=== PATIENT | female | born 1945 | race Hispanic/Latino ===

== ENCOUNTER → 2022-01-17 | Day surgery (SDC) | payer MEDICARE ==
[2022-01-15 15:15] LABS: BASOPHILS # (AUTO) 0.1 (0.0-0.1); BASOPHILS % 0.5 % (0.0-1.0); EOSINOPHILS # (AUTO) 0.2 (0.0-0.4); EOSINOPHILS % 2.1 % (0.0-6.0); HEMATOCRIT 43.1 % (34.2-44.1); HEMOGLOBIN 13.8 g/dL (12.0-16.0); LYMPHOCYTES # (AUTO) 2.7 (1.0-3.2); LYMPHOCYTES % 25.3 % (18.0-39.1); MEAN CORPUSCULAR HEMOGLOBIN 30.5 pg (28-32); MEAN CORPUSCULAR VOLUME 95.1 fL (81-99); MONOCYTES # (AUTO) 0.8 (0.2-0.8); NEUTROPHILS % 64.8 % (38.7-80.0); PLATELET COUNT 212 x10e3/uL (140-360); RED BLOOD COUNT 4.53 x10e6/uL (3.6-5.1); RED CELL DISTRIBUTION WIDTH 15.1 % (11.7-14.4)
[2022-01-15 15:26] LABS: INR 0.96; PROTHROMBIN TIME 13.7 seconds (11.9-14.5)
[2022-01-15 15:27] LABS: PARTIAL THROMBOPLASTIN TIME 30.8 seconds (23.8-35.5)
[2022-01-15 15:32] LABS: ANION GAP 12.6 mmol/L (8-16); CREATININE, SERUM 1.58 mg/dL (0.57-1.11); POTASSIUM 4.6 mmol/L (3.5-5.1)
[~2022-01-17] MED LIST: AMLODIPINE BESYL5 MG PO; BOTULINUM TOXIN TYPE A 100 UNIT VIAL IM ONE; CEFTRIAXONE 1 GM VIAL ONE; DEXAMETHASONE SOD PHOS INJ 4 MG/ML SDV ONE; FENTANYL CITRATE/PF 100MCG/2 ML INJ ONE; HYDROCHLOROTHIA25 MG PO; IOPAMIDOL 300MG/ML 50ML INFUS..BTL IV ONE; JARDIANCE25 MG PO; LIDOCAINE HCL 2% LOCAL INJ 5 ML SDV VIAL INJ ONE; LISINOPRIL10 MG PO; METOPROLOL SUCC50 MG PO; MIDAZOLAM HCL 2 MG/2 ML VIAL ONE; ONDANSETRON HCL INJ 2MG/ML 2ML 2 MG/ML VIAL ONE; OXYBUTYNIN CHLOR5 MG PO; POVIDONE IODINE 0.05% 0.05 % ML PO ONE; PROPOFOL IV EMULSION 10 MG/ML 20 ML VIAL ONE; PROTONIX20 MG PO; SEVOFLURANE INHAL SOLN 250 ML PEN BTL ONE; SIMVASTATIN10 MG PO; VIT D2 PO
[2022-01-17 10:15] VITALS: BP 125/53
== END | disposition home or self-care (01) ==
LOC: OR 07:35
PROVIDERS: ATTEND Urology
DX: N39.0 Urinary tract infection, site not specified (principal); N39.41 Urge incontinence; N95.2 Postmenopausal atrophic vaginitis; R35.1 Nocturia; I10 Essential (primary) hypertension; E11.9 Type 2 diabetes mellitus without complications; K21.9 Gastro-esophageal reflux disease without esophagitis; R00.1 Bradycardia, unspecified; E66.01 Morbid (severe) obesity due to excess calories; Z01.810 Encounter for preprocedural cardiovascular examination; Z01.812 Encounter for preprocedural laboratory examination; Z01.818 Encounter for other preprocedural examination; Z20.822 Contact with and (suspected) exposure to COVID-19; Z79.84 Long term (current) use of oral hypoglycemic drugs; Z79.899 Other long term (current) drug therapy; Z68.41 Body mass index [BMI] 40.0-44.9, adult
CPT/HCPCS: 36415 ×2; 52005; 52287; 71046; 74420; 80048; 82948; 85025; 85610; 85730; 93005; C1758; J0587; J0696; J1100; J2001; J2250; J2405; J2704; J3010; Q9967; U0002